=== PATIENT | female | born 1945 | race Caucasian/White ===

== ENCOUNTER 2018-06-22 06:22 | Day surgery (SDC) | payer OTHER, MEDICARE ==
[2018-06-07 14:12] VITALS: BMI 23.8
--- NOTE | 2018-06-10 14:33 | HP ---
Admitting History and Physical - Primary Care Physician PCP: Sang Ferro - Admission Chief Complaint: Left breast cancer History of Present Illness: 72 year old postmenapausal female with family H/O breast cancer and screening mammogram showing new cluster of calcifications with related spiculated mass left breast.US confirmed left breast mass at 6:00 4 to 6 cm FN .7 mm and irregular with calcifications. Left breast US core biopsy showed DCIS but deeper cuts showed invasive carcinoma HER2 -,ER/HI could not be evaluated. Breast MRI right breast negative and left breast localized cancer. 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 ) Gastrointestinal: No: Diverticulitis (with abscess fistula and ileostomy 2017 reversal was done 08/2017.) Psych: Yes: Anxiety, Depression - Past Surgical History Past Surgical History: Yes: Ileosotomy (Diverticulitis with abscess fistula and ileostomy and reversal ) Additional Past Surgical History: right knee meniscal tear - Advance Directives Advance Directives: Yes: Health Care Proxy - Smoking History Smoking history: Former smoker Have you smoked in the past 12 months: No If you are a former smoker, when did you quit?: 2008 - Alcohol/Substance Use Hx Alcohol Use: Yes (SOCIAL) Home Medications - Allergies Allergies/Adverse Reactions: Allergies Allergy/AdvReac Type Severity Reaction Status Date / Time No Known Drug Allergies Allergy Verified 06/07/18 13:43 - Home Medications Home Medications: Ambulatory Orders Aspirin [Aspirin EC] 81 mg PO HS 06/07/18 Clonazepam [Klonopin] 2 mg PO HS 06/07/18 Cyanocobalamin [Vitamin B12 -] 500 mcg PO DAILY 06/07/18 Escitalopram Oxalate [Lexapro -] 20 mg PO DAILY 06/07/18 Folic Acid 1 mg PO DAILY 06/07/18 Isosorbide Mononitrate [Isosorbide Mononitrate ER] 60 mg PO DAILY 06/07/18 Metoprolol Succinate 100 mg PO HS 06/07/18 Nitroglycerin [Nitrostat] 0.4 mg SL ASDIR 06/07/18 Nortriptyline HCl [Pamelor -] 50 mg PO HS 06/07/18 Rosuvastatin Calcium [Crestor] 20 mg PO HS 06/07/18 Family Disease History - Family Disease History Family Disease History: Diabetes: Grandparent (mat and pat GM breast ca 50-60 /pat GM breast ca 60), CA: Grandparent Other Family History: pat aunt breast ca 50 Physical Examination Constitutional: Yes: Well Nourished Breast(s): Yes: Other (diffusely nodular bilaterally no palpable masses in either breast or adenopathy post bx changes left breast) Problem List - Problems (1) Breast cancer, left breast Code(s): C50.912 - MALIGNANT NEOPLASM OF UNSPECIFIED SITE OF LEFT FEMALE BREAST Qualifiers: Breast location: overlapping sites of breast Estrogen receptor status: unspecified Patient sex: female Qualified Code(s): C50.812 - Malignant neoplasm of overlapping sites of left female breast Assessment/Plan Left breast wide excision with needle localization,sentenel node biopsy, lymphoscintogram, possible axillary node dissection, intra op radiation
[2018-06-22] MEDS ORDERED: BUPIVACAINE HCL/PF 2.5 MG/ML - 30 ML VIAL IJ ONE (11:10)
[2018-06-22] MEDS ORDERED: MIDAZOLAM HCL 2 MG/2 ML SINGLE DOSE VIAL ONE (11:16)
[2018-06-22] MEDS ORDERED: ONDANSETRON 4 MG/2 ML VIAL IVPUSH PRN ×2 (11:40→15:03)
[2018-06-22] MEDS ORDERED: oxyCODONE HCL 5 MG TABLET PO PRN (11:40)
[2018-06-22] MEDS ORDERED: ACETAMINOPHEN 325 MG TABLET (FP) PO PRN (11:40)
[2018-06-22] MEDS ORDERED: PROPOFOL 20 ML ONE (11:43)
[2018-06-22] MEDS ORDERED: LACTATED RINGERS SOLUTION 1,000 ML IV SCH (11:45)
[2018-06-22] MEDS ORDERED: ONDANSETRON 4 MG/2 ML VIAL ONE (11:58)
[2018-06-22] MEDS ORDERED: DEXAMETHASONE SOD PHOSPHATE 4 MG/1 ML VIAL ONE (11:58)
[2018-06-22] MEDS ORDERED: ISOSULFAN BLUE 10 MG/ML VIAL SQ ONE (11:59)
[2018-06-22 15:59] VITALS: TEMP 98.4
--- NOTE | 2018-06-22 16:10 | OP ---
DATE OF OPERATION: 06/22/2018 LOCATION: [facility] PREOPERATIVE DIAGNOSIS: Left breast cancer. POSTOPERATIVE DIAGNOSIS: Left breast cancer. PROCEDURE: Post lumpectomy intraoperative radiation therapy for left breast cancer. ATTENDING SURGEON: Sang Ferro MD LINOLEUM TILE LAYER/RADIATION ONCOLOGIST: Thao Rush MD ANESTHESIA: General. COMPLICATIONS: None. INDICATIONS: Ms. 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 She agreed to enroll on the TARGIT-B trial and was randomized to the intraoperative radiation therapy arm. PROCEDURE: Dr. Ferro performed left lumpectomy and sentinel lymph node biopsy which he has dictated. After excision of additional margins, the lumpectomy cavity was prepared by suturing the deep breast tissue to close the cavity and to protect the chest wall. The patient was sized with a 4.5 cm diameter spherical applicator which was placed into the surgical cavity at the 6 o'clock aspect of the left breast. The applicator was placed into the cavity, and the surrounding breast tissues were cinched around the applicator with a No. 1 Vicryl pursestring suture. I performed a clinical and ultrasound simulation to ensure that the applicator was located within the operative bed with close apposition of the surrounding breast tissue to the surface of the applicator. After additional closure of the cavity with suturing , our ultrasound measurements confirmed a minimum ztsx-ly-wyafabvasa distance of 1.05 cm at the 9 o'clock aspect of the applicator. Saline-soaked gauze was placed between the skin and breast tissue, and shielding material was placed over the breast to reduce scatter radiation. The patient received a total dose of 20 Gy prescribed to 0 mm from the applicator surface using 50 kV x-rays from the INTRABEAM system. Prior to treatment, the system was double checked with appropriate physics air quality specialist measures. The total time required for the treatment was 36 minutes 52 seconds at a dose rate of 0.542 Gy per minute. When the treatment was completed, survey of the patient and room confirmed that the source was off. There were no complications or unplanned interruptions. Dr. Ferro's team removed the radiation applicator from the patient and completed the surgery. The patient will be discharged to the recovery room following the surgery. THAO RUSH M.D. ALEX/[id number] MTDD
[2018-06-22] MEDS ORDERED: ACETAMINOPHEN 325 MG TABLET (FP) ONE (16:26)
[2018-06-22] MEDS ORDERED: KETOROLAC TROMETHAMINE 30 MG/1 ML VIAL IVPUSH PRN (17:01)
[2018-06-22] MEDS ORDERED: DEXTROSE 5%-0.45% SALINE 1,000 ML IV SCH (17:15)
[2018-06-22 18:13] VITALS: BP 121/83; PULSE 88
--- NOTE | 2018-06-28 11:11 | PATH ---
Surgical Pathology Report Patient Name: SANA MCKEON [facility]. Rec. #: [id number] /Age/Gender: 1945 (Age: 72) / F Account: [id number] Location: [facility] AMBULATORY Taken: 06/22/2018 Received: 06/22/2018 Reported: 06/28/2018 Physicians: Sang Ferro M.D. Zheng Rush M.D., PhD Specimen(s) Received A: LEFT BREAST WIDE EXCISION B: LEFT BREAST ANTERIOR MARGIN C: LEFT BREAST INFERIOR MARGIN D: LEFT BREAST SUPERIOR MARGIN E: LEFT BREAST MEDIAL MARGIN F: LEFT BREAST LATERAL MARGIN G: SENTINEL LYMPH NODE Clinical History Invasive Final Diagnosis A. BREAST, LEFT, WIDE EXCISION: DUCTAL CARCINOMA IN SITU (DCIS), SOLID TYPE, HIGH NUCLEAR GRADE, WITH EXTENSIVE NECROSIS, PRESENT IN TWO OF FIFTEEN SLIDES (2/15). DCIS RANGES IN SIZE FROM <1MM TO 3 MM IN GREATEST MICROSCOPIC DIMENSION. DCIS IS <1 MM FROM CLOSEST POSTERIOR/DEEP MARGIN. SEE SPECIMEN B-F FOR ADDITIONAL FINAL MARGINS. PRIOR BIOPSY SITE CHANGES ARE PRESENT. SCANT SKELETAL MUSCLE NOTED. PATHOLOGIC STAGE (pTNM): pTis pN0(sn). SEE DCIS CASE SUMMARY BELOW. B. BREAST, LEFT, ANTERIOR MARGIN, EXCISION: BENIGN BREAST PARENCHYMA WITH ASSOCIATED MICROCALCIFICATIONS. C. BREAST, LEFT, INFERIOR MARGIN, EXCISION: BENIGN BREAST PARENCHYMA AND SKELETAL MUSCLE. D. BREAST, LEFT, SUPERIOR MARGIN, EXCISION: BENIGN BREAST PARENCHYMA WITH STROMAL FIBROSIS, MICROCYSTS, AND COLUMNAR CELL CHANGES. E. BREAST, LEFT, MEDIAL MARGIN, EXCISION: BENIGN BREAST PARENCHYMA. F. BREAST, LEFT, LATERAL MARGIN, EXCISION: BENIGN BREAST PARENCHYMA. G. AXILLARY SENTINEL LYMPH NODE, LEFT, EXCISION: TWO LYMPH NODES NEGATIVE FOR CARCINOMA (0/2). Comment: Immunohistochemical stains performed and interpreted at [facility] for E-cadherin and AE1/3 was utilized to evaluate this case. Comments DCIS of the Breast: Surgical Pathology Cancer Case Summary (Based on AJCC TNM 8 th edition) Procedure _X__ Excision (less than total mastectomy) Specimen Laterality _X__ Left Size (Extent) of DCIS Estimated size (extent) of DCIS: at least (millimeters) _3__ mm Number of blocks with DCIS: _2__ Number of blocks examined: _15__ Histologic Type _X__ Ductal carcinoma in situ Architectural Patterns _X__ Solid Nuclear Grade _X__ Grade III (high) Necrosis _X__ Present, central (expansive "comedo" necrosis) Margins _X__ Uninvolved by DCIS Distance from closest margin (millimeters): _<1__ mm Specify closest margin: posterior/deep Regional Lymph Nodes Lymph Node Examination Number of Lymph Nodes with Macrometastases (>2 mm): __0__ Number of Lymph Nodes with Micrometastases (>0.2 mm to 2 mm and/or >200 cells): __0__ Number of Lymph Nodes with Isolated Tumor Cells (=0.2 mm and =200 cells): __0__ Number of Lymph Nodes Examined: __2__ Number of [place] Nodes Examined: __2__ Pathologic Stage Classification (pTNM, AJCC 8th Edition) Primary Tumor (pT) _X__ pTis (DCIS): Ductal carcinoma in situ Regional Lymph Nodes (pN) Modifier _X__ (sn): [place] node(s) evaluated. Category (pN) : _X__ pN0: No regional lymph node metastasis identified or ITCs only. Microcalcifications _X__ Present in nonneoplastic tissue Biomarker Studies Results of ER and NE studies performed on this specimen (block# A3) at [facility] are as follows: ER (clone [id number] mouse monoclonal antibody by Leica): 0% nuclear staining (Negative). NE (clone16 mouse monoclonal antibody by Leica): 0% nuclear staining (Negative). Electronically Signed Isa Brown M.D. Gross Description A. Received in formalin, labeled "left breast wide excision," is a 5.0 x 3.4 x 2.7 cm. rosas-yellow, irregular, portion of fibroadipose tissue with a needle localization wire present. There is a short suture marking the superior aspect and a long suture marking the lateral aspect, per the surgeon. There is no skin or nipple present. The specimen is inked as follows: superior and lateral blue; inferior green; medial yellow; anterior red; posterior/deep black. The specimen is serially sectioned from superior to inferior. Sectioning reveals a 0.7 x 0.6 x 0.6 cm ill-defined focus of firm fibrous tissue abutting the deep margin. The remaining breast parenchyma displays foci of fibrous tissue. Occupational Health And Safety Officer sections are submitted in 6 cassettes as follows: 1-firm focus with lateral, anterior and posterior/deep margins; 2-3-fibrous tissue surrounding firm focus (each with lateral, anterior and posterior/deep margins); 4-medial margin; 5-superior margin; 6-inferior margin. Time to formalin fixation: 5 minutes Total formalin fixation time: Approximately 29 hours. The remainder of the specimen is sequentially submitted as follows: 7-additional superior margin; 8-9-one bisected section (8-lateral, anterior and posterior/deep margins; 9-medial, anterior and posterior/deep margins); 86-63-vbyyacv tissue each with anterior and posterior/deep margins; 12-13-one bisected section (12-lateral, anterior and posterior/deep margins; 13-medial, anterior and posterior/deep margins); 14-fibrous tissue with anterior, posterior/deep, medial and lateral margins; 15-additional inferior margin. B. Received in formalin labeled "left breast anterior margin," is a 2.2 x 2.0 x 0.5 cm portion of fibroadipose tissue with a clip marking the new margin, per the surgeon. The new margin is inked blue and the specimen is serially sectioned. The specimen is entirely submitted in 2 cassettes. C. Received in formalin labeled "left breast inferior margin," is a 1.6 x 1.4 x 0.6 cm portion of fibroadipose tissue with a clip marking the new margin, per the surgeon. The new margin is inked blue and the specimen is serially sectioned. The specimen is entirely submitted in 2 cassettes. D. Received in formalin labeled "left breast superior margin," is a 2.6 x 2.3 x 0.6 cm portion of fibroadipose tissue with a clip marking the new margin, per the surgeon. The new margin is inked blue and the specimen is serially sectioned. The specimen is entirely submitted in 3 cassettes. E. Received in formalin labeled "left breast medial margin," is a 1.2 x 0.9 x 0.5 cm portion of fibroadipose tissue with a clip marking the new margin, per the surgeon. The new margin is inked blue and the specimen is serially sectioned. The specimen is entirely submitted in one cassette. F. Received in formalin labeled "left breast lateral margin," is a 3.2 x 1.1 x 0.6 cm portion of fibroadipose tissue with a clip marking the new margin, per the surgeon. The new margin is inked blue and the specimen is serially sectioned. The specimen is entirely submitted in 3 cassettes. G. Received in formalin labeled "left axillary sentinel node," are 2 lymph nodes with attached fat measuring 0.7 x 0.6 x 0.4 cm and 2.3 x 1.6 x 0.6 cm. The lymph nodes are entirely submitted in 3 cassettes as follows: 1-bisected smaller lymph node; 2-3-larger lymph node. [facility]
--- NOTE | 2018-06-28 20:59 | OP ---
DATE OF OPERATION: 06/22/2018 PREOPERATIVE DIAGNOSIS: Left breast cancer. POSTOPERATIVE DIAGNOSIS: Left breast cancer. PROCEDURE: Left mammographically localized wide excision, central node biopsy, and intraoperative radiation. DESCRIPTION OF PROCEDURE: The patient was made aware of the risks and benefits of the procedure and consented. She was placed in a supine position after going to radiology suite where a needle and wire were placed next to the indexed lesion. She then went to nuclear medicine where a radiographic tracer was injected into her peritumor tissues and skin. She was then brought to the operating room table and placed in a supine position. After general anesthesia was induced, the patient was intubated. Then 2.5 mL of 1% Isosulfan Blue was locally infiltrated into the peritumor tissues. The operative site was prepped and draped in the usual sterile fashion. Waiting approximately 10 minutes with gentle manual compression, a curvilinear incision was made in the left axilla. Using blunt and sharp dissection, tissues were dissected down revealing a cluster of blue and hot lymph nodes. These were surgically excised and submitted to Pathology. Interrogation of the rest of the axilla by palpation with the needle probe found no suspicious areas. The wound was then copiously irrigated with normal saline. Hemostasis maintained by electrocautery. The wound was closed with a deep layer of Vicryl followed by a running subcuticular 4-0 Monocryl. The breast was then approached. An inframammary incision was then made. Using electrocautery, thick skin flaps were made. The needle was withdrawn through the puncture site and a wire through the wound. Tissues around the wire were then sharply excised and submitted with a short superior, long suture lateral. Additional segments were taken medial, lateral, inferior, deep, superior, and anterior with clips at the new surgical margin. The wound was copiously irrigated with normal saline. Hemostasis maintained by electrocautery. A 4.5-cm probe was then placed into the cavity, and a tissue was opposed to it with a running suture of No. 1 Vicryl. Intraoperative ultrasound revealed that all of the distances in each quadrant were greater than 1 cm. The skin was protected by saline soaked gauze, and a radiopaque material was placed over the breast. The patient then underwent approximately 3-6 minutes of intraoperative radiation. The probe, suture, and gauze were then removed. Using electrocautery, the breast tissue was taken off the pectoralis muscle in each direction and rotated into the defect and closed with multiple layers of brrxuw-di-[id number] suture of 2-0 Vicryl. The skin was then closed with a deep 3-0 Vicryl followed by a running subcuticular 4-0 Monocryl. Steri-Strips, a sterile bandage, and a compression bra were then applied, and the patient having tolerated the procedure well was transferred to the recovery room in excellent condition. SUSHILA HARRIS M.D. [id number]
== END 2018-06-22 16:55 | disposition home or self-care (01) ==
LOC: FASU 06:22
PROVIDERS: ATTEND Surgery Surgical Oncology
PROC: 0HBU0ZZ Excision of Left Breast, Open Approach (ICD-10-PCS; principal; 2018-06-22 12:18)
PROC: DMY07ZZ Contact Radiation of Left Breast (ICD-10-PCS; 2018-06-22 12:18)
DX: C50.812 Malignant neoplasm of overlapping sites of left female breast (principal); D05.12 Intraductal carcinoma in situ of left breast; N60.31 Fibrosclerosis of right breast; N64.89 Other specified disorders of breast; E78.5 Hyperlipidemia, unspecified; Z80.3 Family history of malignant neoplasm of breast; Z79.82 Long term (current) use of aspirin; Z98.61 Coronary angioplasty status
CPT/HCPCS: 19281; 76641-TC-50; 77290; 77300; 77316; 77332; 77370-TC; 77424; 78195-TC; 88307-TC; 88341-TC; 88342-TC; 94760; A9541; C9726